=== PATIENT | male | born 1950 | race African-American/Black ===

== ENCOUNTER 2018-07-09 10:56 | Outpatient (CLI) | payer MEDICARE ==
--- NOTE | 2018-07-09 11:51 | RAD ---
Exam: Left hand 3 views: HISTORY: Acute gout of left hand, pain of third metacarpal phalangeal joint. COMPARISON: None FINDINGS: Arthrosis changes with some subchondral cystic changes of the third metacarpal phalangeal joint. Mild generalized degenerative change. IMPRESSION: Generalized degenerative change. Focal arthrosis with some subchondral cystic changes involving the t hird metacarpal phalangeal joint.
== END 2018-07-09 10:57 | disposition home or self-care (01) ==
LOC: BICRAD 10:56
PROVIDERS: ATTEND Internal Medicine
DX: M10.9 Gout, unspecified (principal); M19.042 Primary osteoarthritis, left hand; M25.842 Other specified joint disorders, left hand

== ENCOUNTER 2018-07-29 09:55 | Outpatient (CLI) | payer MEDICARE ==
--- NOTE | 2018-07-29 12:02 | RAD ---
PA AND LATERAL CHEST: Date: 07/29/18 HISTORY: COPD. COMPARISON: 11/22/16 exam. FINDINGS: Heart size within normal limits. There are atherosclerotic changes of the aorta. There are some chron ic appearing lung changes which appear stable. Some flattening to the hemidiaphragms. IMPRESSION: Mild chronic lung change. Stable chest. POS: [facility]
== END 2018-07-29 09:56 | disposition home or self-care (01) ==
LOC: BICRAD 09:55
PROVIDERS: ATTEND Internal Medicine
DX: J44.9 Chronic obstructive pulmonary disease, unspecified (principal); J98.4 Other disorders of lung
CPT/HCPCS: 71046

== ENCOUNTER 2019-06-13 09:01 | Outpatient (CLI) | payer MEDICARE ==
--- NOTE | 2019-06-13 09:31 | RAD ---
RADIOGRAPH CHEST 2 VIEWS: DATE: 06/13/2019 HISTORY: 69-year-old male with cough FINDINGS: There is no airspace density, pulmonary edema, pleural effusion, pneumothorax, or cardiomegaly. IMPRESSION: No acute cardiopulmonary findings.
== END 2019-06-13 09:02 | disposition home or self-care (01) ==
LOC: BICRAD 09:01
PROVIDERS: ATTEND Internal Medicine
DX: R05 Cough (principal)
CPT/HCPCS: 71046

== ENCOUNTER 2021-02-17 09:28 | Emergency (ER) | payer MEDICARE ==
[2021-02-17 10:12] LABS: #Lymphocytes 1.1 thou/uL (1.20-3.40); #Monocytes 1.1 thou/uL (0.11-0.59); #Neutrophils 5.3 thou/uL (1.40-6.50); %Basophils 0.4 % (0.0-1.0); %Eosinophils 0.2 % (0.0-10.0); %Lymphocytes 14.9 % (21.0-51.0); %Monocytes 14.2 % (0.0-10.0); %Neutrophils 70.3 % (42.0-75.0); Hemoglobin 16.4 g/dL (14.0-18.0); Mean Corpuscular HGB CONC 33.6 g/dL (32.0-36.0); Mean Corpuscular Hemoglobin 31.1 pg (27.0-31.0); Mean Corpuscular Volume 92.6 fL (78.0-98.0); Mean Platelet Volume 7.4 fL (7.4-10.4); Platelet Count 209 thou/uL (130-400); RBC Distribution Width 13.8 % (11.5-14.5); Red Blood Cell (RBC) Count 5.26 mill/uL (4.70-6.10); White Blood Cell (WBC) Count 7.5 thou/uL (4.8-10.8)
[2021-02-17 10:32] LABS: ALT (SGPT) 34 U/L (8-55); AST (SGOT) 40 U/L (5-34); Albumin 4.4 g/dL (3.4-4.8); Alkaline Phosphatase 72 U/L (40-110); Anion Gap 17 mmol/L (10-20); BUN (Urea Nitrogen) 9 mg/dL (8.4-25.7); Bilirubin, Total 2.4 mg/dL (0.2-1.2); Calc. Creatinine Clearance 0 mL/min (70-130); Carbon Dioxide 24 mmol/L (23-31); Chloride 96 mmol/L (98-107); Globulin 3.5 g/dL (2.4-3.5); Glucose 154 mg/dL (83-110); Potassium 4.6 mmol/L (3.5-5.1); Protein, Total 7.9 g/dL (5.8-8.1); Sodium 132 mmol/L (136-145)
[2021-02-17 13:35] LABS: Bilirubin Negative (Negative); Blood, Urine Trace (Negative); Glucose, Urine (Dipstick) Negative (Negative); Ketone, Urine Trace mg/dL (Negative); Leukocyte Negative (Negative); Nitrite Negative (Negative); Protein, Urine (Dipstick) Negative (Neg-Trace)
[2021-02-17 13:36] LABS: Clarity Clear (Clear)
[2021-02-17 13:38] LABS: Specific Gravity, Urine 1.053 (1.002-1.036)
[2021-02-17 13:41] LABS: Bacteria/HPF Rare-Few HPF (None Seen); RBC/HPF 0-3 HPF (0-3); Squamous Epithelial 0-3 HPF (0-3); WBC/HPF None Seen HPF (0-3)
[2021-02-17 15:58] LABS: SARS-CoV-2 NAA Rapid Test Not Detected (NotDetected)
== END 2021-02-17 14:40 | disposition home or self-care (01) ==
LOC: ERS 09:28
DX: J44.1 Chronic obstructive pulmonary disease with (acute) exacerbation (principal); K80.20 Calculus of gallbladder without cholecystitis without obstruction; Z20.822 Contact with and (suspected) exposure to COVID-19; Z79.899 Other long term (current) drug therapy; Z79.82 Long term (current) use of aspirin; E11.9 Type 2 diabetes mellitus without complications; E78.5 Hyperlipidemia, unspecified; I10 Essential (primary) hypertension; Z87.891 Personal history of nicotine dependence
CPT/HCPCS: 0240U; 71045; 71275; 74177; 80053; 81003; 83880; 84484; 85025; 85379; 93005; 99285; 36415

== ENCOUNTER 2022-04-11 07:50 | Outpatient (CLI) | payer MEDICARE | END 2022-04-11 07:51 | disposition home or self-care (01) | LOC: BICCT 07:50 | PROVIDERS: ATTEND Family Medicine | DX: Z12.2 Encounter for screening for malignant neoplasm of respiratory organs (principal); J44.9 Chronic obstructive pulmonary disease, unspecified; F17.210 Nicotine dependence, cigarettes, uncomplicated | CPT/HCPCS: 71271 ==

== ENCOUNTER 2022-07-03 08:05 | Outpatient (CLI) | payer MEDICARE | END 2022-07-03 08:06 | disposition home or self-care (01) | LOC: CT 08:05 | PROVIDERS: ATTEND Family Medicine | DX: Z12.2 Encounter for screening for malignant neoplasm of respiratory organs (principal); F17.210 Nicotine dependence, cigarettes, uncomplicated; R91.8 Other nonspecific abnormal finding of lung field; J47.9 Bronchiectasis, uncomplicated; J18.1 Lobar pneumonia, unspecified organism | CPT/HCPCS: 71271 ==

== ENCOUNTER 2022-07-20 11:57 | Outpatient (CLI) | payer MEDICARE | END 2022-07-20 11:58 | disposition home or self-care (01) | LOC: ULT 11:57 | PROVIDERS: ATTEND Family Medicine | DX: Z00.00 Encounter for general adult medical examination without abnormal findings (principal); Z13.6 Encounter for screening for cardiovascular disorders | CPT/HCPCS: 76775 ==

== ENCOUNTER 2024-11-19 07:50 | Outpatient (CLI) | payer OTHER | END 2024-11-19 07:51 | disposition home or self-care (01) | LOC: RAD 07:50 | PROVIDERS: ATTEND Internal Medicine | DX: J44.9 Chronic obstructive pulmonary disease, unspecified (principal); R91.8 Other nonspecific abnormal finding of lung field | CPT/HCPCS: 71046 ==